=== PATIENT | male | born 1985 | race Caucasian/White ===

== ENCOUNTER 2021-10-13 23:18 | Emergency (ER) | payer OTHER, SELFPAY ==
[2021-10-13 23:19] VITALS: BP 152/100; PULSE 110; RESP 16; TEMP 37; O2SAT 100; BMI 28.8
--- NOTE | 2021-10-14 00:30 | EDS_ITS ---
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 He states he was going to the pockets when he pulled a tube that the person's data they used for other opioids. The patient states there was a mild amount of film on it but nothing significant. He states however little while after handling the tube he began to feel slightly lightheaded and fatigue. Secondary to this he presents for evaluation [facility] Medical History no medical history no medical history Allergy/AdvReac Type Severity Reaction Status Date / Time No Known Allergies Allergy Verified 03/13/14 19:57 Social History Smoking Status: Never smoker ROS ROS ED Constitutional Constitutional ED: Denies chills or fever(s) Eyes Eyes: Denies change in vision ENT ENT ED: Denies sore throat Cardiovascular Cardiovascular: Denies chest pain Respiratory/Chest Respiratory/Chest: Denies cough or dyspnea Gastrointestinal Gastrointestinal: Reports nausea; Denies abdominal pain, diarrhea or vomiting Genitourinary Genitourinary ED: Denies dysuria Musculoskeletal Musculoskeletal: Denies myalgias Integumentary Denies rash Neurologic Neurologic: Reports headache(s) and weakness Hematologic/Lymphatic Hematologic/Lymphatic: Denies easy bleeding or easy bruising EXAM Physical Exam Const Vital Signs: 10/13/21 23:19 10/13/21 23:31 10/13/21 23:38 Temperature 98.6 F Temperature Source Temporal Pulse Rate 110 H Respiratory Rate 16 Respiratory Effort Normal Non-Labored Respiratory Pattern Normal Blood Pressure 152/100 H Blood Pressure Mean 117 Pulse Ox 100 Oxygen Delivery Method Room Air Room Air Positive well nourished and well developed General Appearance ED: well developed HEENT Reports moist mucous membranes Eyes EOMs intact bilaterally Eyes Narrative: Pupils are slightly constricted consistent with opioid exposure Neck supple Resp normal respiratory effort and clear to auscultation bilaterally Cardio regular rate and regular rhythm GI non-tender and non-distended Auscultation: normoactive bowel sounds Palpation: soft Extremity normal to inspection Neuro oriented x3 and CN's II-XII intact bilaterally Sensorium / Orientation: alert Psych mental status grossly normal Skin no rashes or lesions noted MDM MDM MDM Narrative Medical decision making narrative: Patient presented to the ER as she mildly hypertensive but otherwise in no acute distress. He had inadvertent opioid exposure and his pupils were slightly constricted consistent with this. There was no derangement in mental status or respiratory depression. At been multiple hours since the exposure and therefore my concern for patient progressing to respiratory distress or change in mental status is low. We discussed that his symptoms of fatigue and headache could be related to the start of a viral infection and just coincidentally occurred with his opioid exposure. At this time as the patient is awake and alert with stable vitals and has no signs of progression to respiratory distress or change in mental status I do not feel there is need for further work-up. Therefore patient be discharged and was advised to watch for signs and symptoms of possible onset of viral infection Discharge Plan Triage Chief Complaint: Occup Expose Other Complaint: General Illness ED Provider: Sly Richardson Dx/Rx/DC Orders Clinical Impression: Contact with and (suspected) exposure to other hazardous substances Instructions: ED Overdose, Opiate Primary Care Provider: Mariah Sanchez Referrals: Mariah Sanchez MD [Primary Care Provider] - Activity Restrictions/Additional Instructions: You have been provided discharge instructions about opiate overdose. You had opioid exposure and by history and exam mild symptoms associated with this. They should be completely resolved by the morning. If your symptoms persist this could indicate you have the start of a viral infection and should then follow-up with family doctor or return to the ER for further evaluation if your symptoms are worsening. Disposition Disposition: Home, Self Care
[2021-10-14 00:39] VITALS: BP 135/63; PULSE 96; RESP 18; O2SAT 100
== END 2021-10-14 00:40 | disposition home or self-care (01) ==
PROVIDERS: Emergency Provider Emergency Medicine; PCP Family Medicine; Visit Provider Emergency Medicine
DX: Z77.21 Contact with and (suspected) exposure to potentially hazardous body fluids (principal)
CPT/HCPCS: 99282